=== PATIENT | female | born 1990 | race Native Hawaiian/Other Pacific Islander ===

== ENCOUNTER 2016-04-28 18:17 | Emergency (ER) | payer MEDICAID ==
[2016-04-28] MEDS ORDERED: LORAZEPAM 2 MG/ML 1ML SDV ONE (19:31)
[2016-04-28] MEDS ORDERED: PROCHLORPERAZINE 5 MG/ML 2 ML VIAL ONE (19:31)
[2016-04-28 21:27] LABS: URINE BILIRUBIN NEGATIVE (NEGATIVE); URINE BLOOD NEGATIVE (NEGATIVE); URINE GLUCOSE (UA) NEGATIVE (NEGATIVE); URINE LEUKOCYTE ESTERASE 2+ (NEGATIVE); URINE NITRITE NEGATIVE (NEGATIVE); URINE PROTEIN NEGATIVE (NEGATIVE); URINE UROBILINOGEN NORMAL (0-1 mg/dl)
[2016-04-28 21:28] LABS: URINE APPEARANCE HAZY; URINE COLOR LIGHT YELLOW
[2016-04-28 21:30] LABS: HCG,QUALITATIVE URINE NEGATIVE
[2016-04-28 21:36] LABS: URINE RBC 0 /hpf
[2016-04-28 21:37] LABS: URINE BACTERIA 1+
== END 2016-04-28 21:43 | disposition home or self-care (01) ==
LOC: ED 18:17
DX: G43.909 Migraine, unspecified, not intractable, without status migrainosus (principal)

== ENCOUNTER 2016-05-18 01:56 | Emergency (ER) | payer MEDICAID ==
[2016-05-18] MEDS ORDERED: CEPHALEXIN 500 MG CAPSULE ONE (02:43)
== END 2016-05-18 03:16 | disposition home or self-care (01) ==
LOC: ED 01:56
DX: L03.032 Cellulitis of left toe (principal)
CPT/HCPCS: 99283 ×2; A9270